=== PATIENT | female | born 1980 | race Caucasian/White ===

== ENCOUNTER 2019-06-02 10:37 | Emergency (ER) | payer OTHER ==
--- NOTE | 2019-06-02 11:28 | RAD REPORT ---
EXAM DESCRIPTION: Esthela Single View06/02/2019 11:13 am CLINICAL HISTORY: Chest pain COMPARISON: none FINDINGS: The lungs appear clear of acute infiltrate. The heart is normal size IMPRESSION: No acute abnormalities displayed
[2019-06-02 11:33] LABS: Absolute Lymphocytes (CBC) 2.6 K/uL (0.7-4.9); Basophils % 0.3 % (0-1.3); Lymphocytes % 25.8 % (15.3-44.8); MPV 8.1 fL (7.6-11.3); RBC Red Blood Cell Count 3.98 M/uL (3.86-4.86)
[2019-06-02 11:40] LABS: Protime INR 0.91
[2019-06-02 11:57] LABS: ALT/SGPT 25 U/L (12-78); AST/SGOT 15 U/L (15-37); Albumin 3.7 g/dL (3.4-5.0); Alkaline Phosphatase 61 U/L (45-117); BUN Blood Urea Nitrogen 9 mg/dL (7-18); Bicarbonate 26 mmol/L (21-32); Bilirubin Direct < 0.1 mg/dL (0-0.2); Bilirubin Total 0.1 mg/dL (0.2-1.0); Glucose Level 87 mg/dL (74-106); Magnesium 1.9 mg/dL (1.8-2.4); NT PRO-BNP 145 pg/mL (<125); Potassium 3.7 mmol/L (3.5-5.1); Protein, Total 7.4 g/dL (6.4-8.2); Sodium Level 139 mmol/L (136-145); Troponin (Emerg Dept Use Only) < 0.02 ng/mL (0.0-0.045)
--- NOTE | 2019-06-02 12:06 | ER ---
Nurse's Notes [facility] Name: Lashonda Magallanes Age: 38 yrs Sex: Female : 1980 Arrival Date: 06/02/2019 Time: 10:39 Bed 19 Private MD: Diagnosis: Chest pain, unspecified Presentation: 06/01 10:48 Chief complaint: Patient states: left sided chest pain since yesterday , worse today, iw has constant feeling of discomfort or heaviness and intermittently has sharp pains, pain radiates to left jaw and left hand. Coronavirus screen: Proceed with normal triage. Patient denies a cough. Patient denies shortness of breath or difficulty breathing. Patient denies measured and/or subjective temperature greater than 100.4F prior to today's visit. Patient denies travel on a cruise ship or to a country the [facility] currently lists as an affected area. Patient denies contact with known and/or suspected case of COVID-19. Ebola Screen: Patient negative for fever greater than or equal to 101.5 degrees Fahrenheit, and additional compatible Ebola Virus Disease symptoms Patient denies exposure to infectious person. Patient denies travel to an Ebola-affected area in the 21 days before illness onset. No symptoms or risks identified at this time. Initial Sepsis Screen: Does the patient meet any 2 criteria? No. Patient's initial sepsis screen is negative. Does the patient have a suspected source of infection? No. Patient's initial sepsis screen is negative. Risk Assessment: Do you want to hurt yourself or someone else? Patient reports no desire to harm self or others. Onset of symptoms was June 01, 2019. 10:48 Method Of Arrival: Ambulatory iw 10:48 Acuity: SHAUN 3 iw [employer]: 10:51 LMP N/A - Irregular menses iw Historical: - Allergies: 10:51 Vicodin; iw 10:51 Cipro; iw - Home Meds: 10:51 None [Active]; iw - PMHx: 10:51 None; iw - PSHx: 10:51 Cholecystectomy; Tubal ligation; iw - Immunization history:: Adult Immunizations not up to date. - Social history:: Smoking status: Patient/guardian denies using tobacco, Stopped _ months ago 1. Screenin:01 Abuse screen: Denies threats or abuse. Denies injuries from another. Nutritional iw screening: No deficits noted. Tuberculosis screening: No symptoms or risk factors identified. Fall Risk None identified. Assessment: 11:00 General: Appears in no apparent distress. Behavior is calm, cooperative. Pain: iw Complains of pain in anterior aspect of left upper chest and left breast Pain radiates to left arm Pain currently is 6 out of 10 on a pain scale. Quality of pain is described as sharp, Pain began 1 day ago. Neuro: Level of Consciousness is awake, alert, obeys commands, Oriented to person, place, time, situation, Moves all extremities. Full function. Cardiovascular: Capillary refill < 3 seconds in bilateral fingers Patient's skin is warm and dry. Respiratory: Respiratory effort is even, unlabored, Respiratory pattern is regular, symmetrical. GI: No signs and/or symptoms were reported involving the gastrointestinal system. Abdomen is non-distended. Derm: Skin is intact, is healthy with good turgor. Musculoskeletal: Range of motion: intact in all extremities. 12:00 Reassessment: RECD REPORT FROM EVA GORDILLO. 38YO WF P/W CHEST PAIN. ALL CURRENT STUDIES bp COMPLETED AND UNREMARKABLE. DISPO PENDING. 12:11 Reassessment: PT D/C HOME AMBULATORY, DX WITH UNSPECIFIED CHEST PAIN. bp Vital Signs: 10:48 BP 144 / 85; Pulse 82; Resp 16 S; Pulse Ox 100% on R/A; Weight 86.18 kg; Height 5 ft. 5 iw in. (165.10 cm); Pain 6/10; 12:11 BP 137 / 79; Pulse 79; Resp 16; Temp 98; Pulse Ox 99% ; bp 10:48 Body Mass Index 31.62 (86.18 kg, 165.10 cm) iw ED Course: 10:39 Patient arrived in ED. ag5 10:48 [facility] snw 10:48 Jose Virk MD is Attending Physician. snw 10:50 Triage completed. iw 10:55 EKG done, by ED staff, reviewed by Karissa BRYANT. em1 11:11 Initial lab(s) drawn, by in, sent to lab. Inserted saline lock: 20 gauge in right em1 antecubital area, using aseptic technique. Blood collected. 11:16 XRAY Chest (1 view) In Process Unspecified. EDMS 11:39 Eva Manzano, RN is Primary Nurse. iw 12:00 Arm band placed on. bp 12:05 Primary Nurse role handed off by Eva Manzano, RAND bp 12:05 Garrett Alba, RN is Primary Nurse. bp 12:11 No provider procedures requiring assistance completed. IV discontinued, intact, bp bleeding controlled, No redness/swelling at site. Pressure dressing applied. Patient maintains SpO2 saturation greater than 95% on room air. 12:11 Patient has correct armband on for positive identification. Bed in low position. Call bp light in reach. Side rails up X2. case monitor on. Pulse ox on. NIBP on. Administered Medications: No medications were administered Outcome: 12:05 Discharge ordered by . snw 12:11 Discharged to home ambulatory. bp 12:11 Condition: stable 12:11 Discharge instructions given to patient, Instructed on discharge instructions, follow up and referral plans. medication usage, Demonstrated understanding of instructions, follow-up care, medications, Prescriptions given X 1. 12:22 Patient left the ED. bp Signatures: Dispatcher [employer] EDMO Karissa Ortiz, MITER SAWYER-C MITER SAWYER-Csnw Eva Manzano, RN RN Navi Shelley em1 Garrett Alba, RN RN Kip Donnelly ag5
--- NOTE | 2019-06-02 12:06 | EDPHYS ---
Physician Documentation [facility] Name: Lashonda Magallanes Age: 38 yrs Sex: Female : 1980 Arrival Date: 06/02/2019 Time: 10:39 Bed 19 Private MD: ED Physician Jose Virk HPI: 06/01 12:10 This 38 yrs old Female presents to ER via Ambulatory with complaints of Chest snw Pain. 12:10 The patient or guardian reports chest pain that is located primarily in the anterior snw chest wall, left. The pain radiates to the left shoulder. Associated signs and symptoms: Pertinent positives: nausea. The chest pain is described as sharp. Duration: The patient or guardian reports multiple episodes, that wax and wane. Severity of pain: At its worst the pain was mild moderate. The patient has not experienced similar symptoms in the past. The patient has not recently seen a physician. Pain began 3 days ago, waxing and waning, sharp in nature. Pt states it felt like previous anxiety attack but has lasted longer.. [employer] [place]: 10:51 LMP N/A - Irregular menses iw Historical: - Allergies: 10:51 Vicodin; iw 10:51 Cipro; iw - Home Meds: 10:51 None [Active]; iw - PMHx: 10:51 None; iw - PSHx: 10:51 Cholecystectomy; Tubal ligation; iw - Immunization history:: Adult Immunizations not up to date. - Social history:: Smoking status: Patient/guardian denies using tobacco, Stopped _ months ago 1. ROS: 12:08 Constitutional: Negative for fever, chills, and weight loss, Eyes: Negative for injury, snw pain, redness, and discharge, ENT: Negative for injury, pain, and discharge, Neck: Negative for injury, pain, and swelling, Respiratory: Negative for shortness of breath, cough, wheezing, and pleuritic chest pain, Abdomen/GI: Negative for abdominal pain, nausea, vomiting, diarrhea, and constipation, Back: Negative for injury and pain, : Negative for injury, bleeding, discharge, and swelling, MS/Extremity: Negative for injury and deformity, Skin: Negative for injury, rash, and discoloration, Neuro: Negative for headache, weakness, numbness, tingling, and seizure, Psych: Negative for depression, anxiety, suicide ideation, homicidal ideation, and hallucinations. 12:08 Cardiovascular: Positive for chest pain, of the anterior aspect of left upper chest. Exam: 12:07 Constitutional: This is a well developed, well nourished patient who is awake, alert, snw and in no acute distress. Head/Face: Normocephalic, atraumatic. Eyes: Pupils equal round and reactive to light, extra-ocular motions intact. Lids and lashes normal. Conjunctiva and sclera are non-icteric and not injected. Cornea within normal limits. Periorbital areas with no swelling, redness, or edema. ENT: Nares patent. No nasal discharge, no septal abnormalities noted. Tympanic membranes are normal and external auditory canals are clear. Oropharynx with no redness, swelling, or masses, exudates, or evidence of obstruction, uvula midline. Mucous membranes moist. Neck: Trachea midline, no thyromegaly or masses palpated, and no cervical lymphadenopathy. Supple, full range of motion without nuchal rigidity, or vertebral point tenderness. No Meningismus. Chest/axilla: Normal chest wall appearance and motion. Nontender with no deformity. No lesions are appreciated. Cardiovascular: Regular rate and rhythm with a normal S1 and S2. No gallops, murmurs, or rubs. Normal PMI, no JVD. No pulse deficits. Respiratory: Lungs have equal breath sounds bilaterally, clear to auscultation and percussion. No rales, rhonchi or wheezes noted. No increased work of breathing, no retractions or nasal flaring. Abdomen/GI: Soft, non-tender, with normal bowel sounds. No distension or tympany. No guarding or rebound. No evidence of tenderness throughout. Back: No spinal tenderness. No costovertebral tenderness. Full range of motion. Skin: Warm, dry with normal turgor. Normal color with no rashes, no lesions, and no evidence of cellulitis. MS/ Extremity: Pulses equal, no cyanosis. Neurovascular intact. Full, normal range of motion. Neuro: Awake and alert, GCS 15, oriented to person, place, time, and situation. Cranial nerves II-XII grossly intact. Motor strength 5/5 in all extremities. Sensory grossly intact. Cerebellar exam normal. Normal gait. Psych: Awake, alert, with orientation to person, place and time. Behavior, mood, and affect are within normal limits. 12:07 ECG was reviewed by the Attending Physician. Vital Signs: 10:48 BP 144 / 85; Pulse 82; Resp 16 S; Pulse Ox 100% on R/A; Weight 86.18 kg; Height 5 ft. 5 iw in. (165.10 cm); Pain 6/10; 12:11 BP 137 / 79; Pulse 79; Resp 16; Temp 98; Pulse Ox 99% ; bp 10:48 Body Mass Index 31.62 (86.18 kg, 165.10 cm) iw MDM: 10:56 Patient medically screened. snw 12:09 Data reviewed: vital signs, nurses notes. Data interpreted: Pulse oximetry: on room air snw is 100 %. Interpretation: normal. Counseling: I had a detailed discussion with the patient and/or guardian regarding: the historical points, exam findings, and any diagnostic results supporting the discharge/admit diagnosis, lab results, radiology results, the need for outpatient follow up, to return to the emergency department if symptoms worsen or persist or if there are any questions or concerns that arise at home. Special discussion: Based on the patient's history, exam, and Dx evaluation, there is no indication for emergent intervention or inpatient Tx. It is understood by the patient/guardian that if the Sx's persist or worsen they need to return immediately for re-evaluation. I have referred the patient to see his PCP for further evaluation of high blood pressure. Based on the history and exam findings, there is no indication for further emergent testing or inpatient evaluation. I discussed with the patient/guardian the need to see the primary care provider for further evaluation of the symptoms. 06/01 10:58 Order name: Basic Metabolic Panel; Complete Time: 12:03 snw 06/01 10:58 Order name: CBC with Diff; Complete Time: 11:46 snw 06/01 10:58 Order name: LFT's; Complete Time: 12:03 snw 06/01 10:58 Order name: Magnesium; Complete Time: 12:03 snw 06/01 10:58 Order name: NT PRO-BNP; Complete Time: 12:03 snw 06/01 10:58 Order name: PT-INR; Complete Time: 11:46 snw 06/01 10:58 Order name: Troponin (emerg Dept Use Only); Complete Time: 12:03 06/01 10:58 Order name: XRAY Chest (1 view); Complete Time: 11:46 06/01 10:58 Order name: EKG; Complete Time: 11:01 06/01 10:58 Order name: Cardiac monitoring; Complete Time: 11:26 06/01 10:58 Order name: EKG - Nurse/Tech; Complete Time: 11:11 06/01 10:58 Order name: TSH; Complete Time: 12:03 06/01 11:45 Order name: Urine Dipstick--Ancillary (enter results) ca1 06/01 11:45 Order name: Urine --Ancillary (enter results) 06/01 10:58 Order name: IV Saline Lock; Complete Time: 11:11 06/01 10:58 Order name: Labs collected and sent; Complete Time: 11:11 06/01 10:58 Order name: O2 Per Protocol; Complete Time: 11:06/01 10:58 Order name: O2 Sat Monitoring; Complete Time: 11:06/01 10:58 Order name: Urine Test (obtain specimen); Complete Time: 11:41 snw EC:00 Rhythm is regular. QRS [place] is Normal. QRS interval is normal. QT interval is normal. snw No Q waves. T waves are Normal. Clinical impression: Normal ECG. Administered Medications: No medications were administered Disposition: 18:15 Co-signature as Attending Physician, Jose Virk MD. rn Disposition: 06/02/19 12:05 Discharged to Home. Impression: Chest pain, unspecified. - Condition is Stable. - Discharge Instructions: Nonspecific Chest Pain, Gastroesophageal Reflux Disease, Adult, Hypertension, How to Take Your Blood Pressure, [id number], Form - Blood Pressure Record Sheet. - Prescriptions for Gas- X - take 250 milligram by ORAL route 3 times per day; 1 box. - Medication Reconciliation Form, Thank You Letter, Antibiotic Education, Prescription Opioid Use form. - Follow up: Emergency Department; When: As needed; Reason: Worsening of condition. Follow up: Private Physician; When: 2 - 3 days; Reason: Recheck today's complaints, Continuance of care, Re-evaluation by your physician. Signatures: Dispatcher [employer] Mary Kay Ambrosey, [employer]-C [employer]-Csnw Eva Manzano, RN RN Jose Gray MD MD rn Peltier, Brian, RN RN bp Corrections: (The following items were deleted from the chart) 12:22 12:05 06/02/2019 12:05 Discharged to Home. Impression: Chest pain, unspecified. bp Condition is Stable. Forms are Medication Reconciliation Form, Thank You Letter, Antibiotic Education, Prescription Opioid Use. Follow up: Emergency Department; When: As needed; Reason: Worsening of condition. Follow up: Private Physician; When: 2 - 3 days; Reason: Recheck today's complaints, Continuance of care, Re-evaluation by your physician. snw
[2019-06-02 12:40] LABS: Urine Blood 1+ (NEG); Urine Glucose NEGATIVE (NEG); Urine Protein NEGATIVE (NEG)
--- NOTE | 2019-06-02 20:12 | EKG ---
Test Date: 2019-06-02 Test Time: 10:53:08 Curb Machine Operator: SURENDRA MEASUREMENT RESULTS: Intervals: Rate: 71 IN: 132 QRSD: 88 QT: 390 QTc: 423 [place]: P: 40 IN: 132 QRS: 45 T: 33 INTERPRETIVE STATEMENTS: Normal sinus rhythm Normal ECG No previous ECG available for comparison Electronically Signed On 06-02-19 20:10:57 CDT by Lisandro Guillaume
== END 2019-06-02 12:22 | disposition home or self-care (01) ==
LOC: ER 10:37
DX: R07.9 Chest pain, unspecified (principal); Z88.1 Allergy status to other antibiotic agents; Z88.5 Allergy status to narcotic agent
CPT/HCPCS: 36415; 71045; 80048; 80076; 81003; 81025; 83735; 83880; 84443; 84484; 85025; 85610; 93005; 99285